=== PATIENT | female | born 1970 | race Caucasian/White ===

== ENCOUNTER 2018-03-08 22:12 | Inpatient (IN) | payer MEDICAID ==
[~2018-03-08] VITALS: Ht 152.4 cm; Wt 94.8 kg
[2018-03-08 22:27] VITALS: Ht 152.4 cm; Wt 94.8 kg
[2018-03-08 23:58] LABS: BASOPHIL % 0.9 % (0-2); PLATELET COUNT 332 x10^3mcL (130-400)
[2018-03-09 00:09] LABS: CARBON DIOXIDE 29.2 mmol/L (21-32); CHLORIDE SERUM 100 mmol/L (98-107); CREATININE SERUM 0.7 mg/dL (0.6-1.0); GFR1 > 60 mL/min; GLUCOSE SERUM 111 mg/dL (74-106); POTASSIUM SERUM 3.3 mmol/L (3.5-5.1); SODIUM SERUM 139 mmol/L (136-145)
[2018-03-09 00:14] LABS: ALBUMIN 3.9 g/dL (3.4-5.0); ALKALINE PHOSPHATASE 78 U/L (46-116); ALT/SGPT 19 U/L (14-59); AST/SGOT 10 U/L (15-37); BILIRUBIN TOTAL 0.5 mg/dL (0.20-1.00); LIPASE 206 IU/L (73-393); TOTAL PROTEIN, SERUM 8.4 g/dL (6.4-8.2)
[2018-03-09 00:29] LABS: microscopic required? YES; urine erythrocyte 1+ (NEGATIVE)
[2018-03-09] MEDS ORDERED: LEVOTHYROXINE0.05 M2 PO (01:18)
[2018-03-09 01:59] LABS: CHOLESTEROL/HDL RATIO 2.4; MAGNESIUM 2.1 mg/dL (1.8-2.4); PHOSPHOROUS 3.5 mg/dL (2.5-4.9)
[2018-03-09 02:09] VITALS: BP 118/78
[2018-03-09 04:36] LABS: AMPHETAMINE QUAL UR NONE DETECTED (See below)
[2018-03-09 06:08] VITALS: BP 108/52
[2018-03-09 06:09] LABS: BASOPHIL % 0.3 % (0-2); PLATELET COUNT 297 x10^3mcL (130-400); RED CELL DISTRIBUTION WIDTH 13.4 % (11.5-14.5)
[2018-03-09 06:41] LABS: CALCIUM 8.5 mg/dL (8.5-10.1); CARBON DIOXIDE 28.5 mmol/L (21-32); CHLORIDE SERUM 105 mmol/L (98-107); CREATININE SERUM 0.7 mg/dL (0.6-1.0); GFR1 > 60 mL/min; GLUCOSE SERUM 106 mg/dL (74-106); MAGNESIUM 2.2 mg/dL (1.8-2.4); PHOSPHOROUS 3.7 mg/dL (2.5-4.9); POTASSIUM SERUM 3.9 mmol/L (3.5-5.1); SODIUM SERUM 141 mmol/L (136-145)
[2018-03-09 17:58] VITALS: BP 110/65
[2018-03-09 20:56] VITALS: BP 98/68
[2018-03-10 05:07] VITALS: BP 119/62
[2018-03-10 08:52] LABS: BASOPHIL % 1.4 % (0-2); PLATELET COUNT 317 x10^3mcL (130-400); RED CELL DISTRIBUTION WIDTH 13.2 % (11.5-14.5)
[2018-03-10 09:09] LABS: CALCIUM 8.8 mg/dL (8.5-10.1); CARBON DIOXIDE 26.6 mmol/L (21-32); CHLORIDE SERUM 106 mmol/L (98-107); GFR1 > 60 mL/min; GLUCOSE SERUM 112 mg/dL (74-106); MAGNESIUM 1.9 mg/dL (1.8-2.4); PHOSPHOROUS 3.5 mg/dL (2.5-4.9); POTASSIUM SERUM 3.8 mmol/L (3.5-5.1); SODIUM SERUM 140 mmol/L (136-145)
[2018-03-10] MEDS ORDERED: NORCO1 TA2 PO (12:51)
[2018-03-10 13:08] VITALS: BP 103/64; BP 119/62
[2018-03-10 17:58] VITALS: BP 103/64
== END 2018-03-10 19:45 | disposition home or self-care (01) | DRG 234 ==
LOC: ED 22:12 → MU 03-09 00:45
PROVIDERS: Emergency Medicine; Internal Medicine; Surgery; ADMIT General Practice
PROC: 0DTJ4ZZ Resection of Appendix, Percutaneous Endoscopic Approach (ICD-10-PCS; principal; 2018-03-09 08:30)
DX: K35.80 Unspecified acute appendicitis (principal); E03.9 Hypothyroidism, unspecified; E87.6 Hypokalemia; E66.9 Obesity, unspecified; Z71.3 Dietary counseling and surveillance; Z68.37 Body mass index [BMI] 37.0-37.9, adult
CPT/HCPCS: J0330; J0690; J1170; J1885; J2405; J2543; J2704; J2710; J3010; J3490; J7030; J7120; Q0092